=== PATIENT | male | born 1995 | race African-American/Black ===

== ENCOUNTER 2021-05-23 11:52 | Emergency (ER) | payer OTHER ==
[2021-05-23 12:00] VITALS: BP 145/88
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
[2021-05-23] MEDS: ACETAMINOPHEN 325 MG TABLET PO STA (12:42)
[2021-05-23] MEDS: IBUPROFEN 600 MG TABLET PO STA (12:42)
--- NOTE | 2021-05-23 14:11 | XRAY Report ---
PROCEDURE: Wrist 4 View RT, x-ray INDICATIONS: Trauma TECHNIQUE: 4 views of the wrist were acquired. COMPARISON: None FINDINGS: Bones: No fractures or dislocations. No suspicious bony lesions. Scaphoid view: Unremarkable Soft tissues: No suspicious soft tissue calcifications. IMPRESSION: Normal right wrist radiographs Reviewed by: Adrian Barrett MD on 05/23/2021 1:10 PM [facility] Approved by: Adrian Barrett MD on 05/23/2021 1:10 PM [facility] Station ID: [id number]
== END 2021-05-23 12:53 | disposition home or self-care (01) ==
LOC: ED 11:52
DX: S63.501A Unspecified sprain of right wrist, initial encounter (principal); V00.831A Fall from motorized mobility scooter, initial encounter; Y92.410 Unspecified street and highway as the place of occurrence of the external cause
CPT/HCPCS: 73110; 99282; 99283; A9270